=== PATIENT | male | born 1995 | race Caucasian/White ===

== ENCOUNTER 2016-04-22 15:21 | Emergency (ER) | payer SELFPAY ==
[~2016-04-22] VITALS: Ht 172.7 cm; Wt 68.2 kg
[~2016-04-22 15:21] MED LIST: LATU80TA PO; ZYPR5TAB11 OR
[2016-04-22 15:22] VITALS: BP 138/79; PULSE 107; RESP 15; TEMP 97.8; O2SAT 98
--- NOTE | 2016-04-22 15:34 | PD ---
HPI Chief Complaint: Wound/Suture/Staple Re-Check Time Seen by Provider: 15:33 Travel History International Travel<30 days: No Contact w/Intl Traveler<30days: No Traveled to known affect area: No History of Present Illness HPI 20-year-old male presents to the emergency department for evaluation of staple removal. Patient states that about 10 days ago he sustained a laceration to the top of his scalp and had 7 dandy placed [facility]. States he has been keeping the area clean and dry. Denies any swelling, redness, pain, discharge or drainage. No other complaints. PFSH Past Medical History ADHD: Yes Bipolar Disorder: Yes Diminished Hearing: No Headaches: Yes Psychiatric: Yes Immunizations Current: Yes Migraines: Yes (LOUD NOISE) Past Surgical History Other Surgery: Yes (NOSE REPAIR FROM DOG BITE) Social History Alcohol Use: No Tobacco Use: Yes (03/23 PPD) Substance Use: Yes (MARIJUANA USE IN PAST) Allergies-Medications (Allergen,Severity, Reaction): Coded Allergies: No Known Allergies (Verified , 04/29/12) Reported Meds & Prescriptions Reported Meds & Active Scripts Active Reported Latuda (Lurasidone HCl) 80 Mg Tab 80 Mg PO ONE PO AFTER DINNER Zyprexa Zydis (Olanzapine) 5 Mg Tab 5 Mg OR BID 7AM 7PM Review of Systems Except as stated in HPI: all other systems reviewed are Neg Physical Exam Narrative GENERAL: Well-nourished and well-developed pleasant male patient in no acute distress who is nontoxic appearing. SKIN: Warm and dry. 2 cm healed scalp laceration. No erythema, no warmth, no discharge or drainage. [address] HEAD: Normocephalic and atraumatic. No bony point tenderness or crepitus noted throughout the sinuses. EYES: No injection, drainage, or hyphema noted. PERRLA. EOMI. NECK: Supple and the trachea is midline. CARDIOVASCULAR: Regular rate and rhythm. RESPIRATORY: Breath sounds are equal bilaterally with no accessory muscle use, wheezing, rhonchi, or crackles. NEUROLOGICAL: Awake, alert, and oriented. Normal speech and gait. Cranial nerves are grossly intact. Data Data Last Documented VS Vital Signs Date Time Temp Pulse Resp B/P Pulse Ox O2 Delivery O2 Flow Rate FiO2 04/22/16 15:22 97.8 107 15 138/79 98 MDM Medical Decision Making Medical Screen Exam Complete: Yes Emergency Medical Condition: Yes Differential Diagnosis Staple removal versus acute wound care versus recheck Narrative Course 20-year-old male presents to the emergency department for evaluation of staple removal. Patient is afebrile, vital signs are stable. I successfully removed 7 dandy, the patient tolerated well. Discussed proper wound care techniques. Stable for discharge. Diagnosis Primary Impression: Removal of dandy Patient Instructions: Acute Wound Care (ED), General Instructions Additional Instructions: Return to the ED for any acute worsening of symptoms. Med/Other Pt SpecificInfo: No Change to Meds Disposition: 01 DISCHARGE HOME Condition: Stable Raven Barragan Apr 22, 2016 15:34
== END 2016-04-22 15:55 | disposition home or self-care (01) ==
LOC: NEPB 15:21
DX: S01.01XD Laceration without foreign body of scalp, subsequent encounter (principal); X58.XXXD Exposure to other specified factors, subsequent encounter; Z48.02 Encounter for removal of sutures
CPT/HCPCS: 99282

== ENCOUNTER 2016-05-17 14:17 | Emergency (ER) | payer SELFPAY ==
[~2016-05-17] VITALS: Ht 172.7 cm; Wt 75.0 kg
[2016-05-17 14:25] VITALS: BP 143/84; PULSE 97; RESP 20; TEMP 98.9; O2SAT 99
[2016-05-17] MEDS ORDERED: ACETAMINOPHEN/HYDROcodone 325 MG/7.5 MG TAB PO ONE (14:30)
--- NOTE | 2016-05-17 14:32 | PD ---
HPI Chief Complaint: Injury Time Seen by Provider: 14:28 Travel History International Travel<30 days: No Contact w/Intl Traveler<30days: No History of Present Illness HPI 21-year-old right-hand dominant male presents to the ED by EMS for evaluation of left thumb pain. Onset approximately 15 minutes ago after being hit by a skateboard. Patient endorses pain with attempted range of motion. He denies numbness, tingling, nausea. He denies previous injury to the area. He denies chronic health problems , takes no daily medications. NKDA. PFSH Past Medical History ADHD: Yes Bipolar Disorder: Yes Diminished Hearing: No Headaches: Yes Psychiatric: Yes Immunizations Current: Yes Migraines: Yes (LOUD NOISE) Past Surgical History Other Surgery: Yes (NOSE REPAIR FROM DOG BITE) Social History Alcohol Use: No Tobacco Use: Yes (1 /2 PPD) Substance Use: Yes (MARIJUANA USE IN PAST) Allergies-Medications (Allergen,Severity, Reaction): Coded Allergies: No Known Allergies (Verified , 05/17/16) Reported Meds & Prescriptions Reported Meds & Active Scripts Active Ibuprofen 800 Mg Tab 800 Mg PO Q6HR PRN Lortab (Hydrocodone-Acetaminophen) 5-325 Mg Tab 1 Tab PO Q6H PRN Review of Systems Except as stated in HPI: all other systems reviewed are Neg Physical Exam Narrative GENERAL: Well-nourished, well-developed white male in no acute distress. SKIN: Warm and dry. HEAD: Normocephalic. EYES: No scleral icterus. No injection or drainage. NECK: Supple, trachea midline. No JVD or lymphadenopathy. CARDIOVASCULAR: Regular rate and rhythm without murmurs, gallops, or rubs. 2+ DP and radial pulses bilaterally. RESPIRATORY: Breath sounds equal bilaterally. No accessory muscle use. GASTROINTESTINAL: Abdomen soft, non-tender, nondistended. MUSCULOSKELETAL: No cyanosis, or edema. FOCUSED LEFT UPPER EXTREMITY EXAM: There is visible deformity at the MCP joint of the left thumb. No snuffbox tenderness. No laceration of the skin. Patient is able to flex and extend fingers 4 through 5 of the left hand. Cap refill less than 2 seconds. Sensation intact to light touch distally. BACK: Nontender without obvious deformity. No CVA tenderness. Data Data Last Documented VS Vital Signs Date Time Temp Pulse Resp B/P Pulse Ox O2 Delivery O2 Flow Rate FiO2 05/17/16 15:30 93 18 124/67 96 05/17/16 14:25 98.9 Orders Finger ([id number]) (05/17/16 14:27) Acetamin-Hydrocod 325-7.5 Mg ([place] 7.5 (05/17/16 14:30) Lidocaine 1% Inj (50 Ml) (Xylocaine 1% I (05/17/16 15:15) Splint Or Brace Apply/Monitor (05/17/16 15:17) Finger ([id number]) (05/17/16 15:18) Mandatory Outpatient Referral (05/17/16 15:57) MDM Medical Decision Making Medical Screen Exam Complete: Yes Emergency Medical Condition: Yes Differential Diagnosis Dislocation versus fracture versus contusion versus other Narrative Course 21-year-old right-hand dominant male presents to the ED by EMS for evaluation of left thumb pain. Onset approximately 15 minutes ago after being hit by a skateboard. Patient endorses pain with attempted range of motion. He denies numbness, tingling, nausea. He denies previous injury to the area. Vitals reviewed. Physical exam reveals a nontoxic-appearing white male in no acute distress. Focused left upper extremity exam reveals 2+ radial pulse, visible deformity at the MCP joint of the left thumb. No snuffbox tenderness. No laceration of the skin. Patient is able to flex and extend fingers 4 through 5 of the left hand. Cap refill less than 2 seconds. Sensation intact to light touch distally. Patient was administered 7.5 mg Lortab. X-ray of the left thumb: Fracture along the base of the proximal phalanx of the thumb with intra-articular extension and displacement. Minimal subluxation of the joint per radiology read. Closed reduction of the subluxation was performed. Please see my procedure note for details. Post reduction films reveal near anatomic alignment per radiology read. I contacted Dr. Penelope Edward, on-call hand surgeon, who will see the patient in the outpatient setting. Mandatory outpatient referral has been placed. Patient was prescribed 800 mg ibuprofen 3 times a day as needed for pain. He was also prescribed a short course of 5 mg Lortab for pain 6-10 on the pain scale. He is instructed to rest, ice, elevate the hand. He was cautioned not to remove the thumb spica, follow-up with Dr. Edward as discussed. He indicated understanding of the instructions and is amenable to plan of care. Patient is stable and discharged home. Procedures Procedure Narrative Closed reduction procedure: A digital block was performed with 1% lidocaine. Adequate anesthesia was obtained. The thumb was distracted and force was applied in the medial direction at the MCP joint. There was improvement of the visible deformity. Patient was able to flex and extend the thumb immediately following reduction. Patient remains neurovascularly intact. Thumb spica was applied. Postoperative x-rays reveal near anatomical position per radiology read. Diagnosis Primary Impression: Fracture of thumb, left, closed Qualified Code: S62.512A - Closed displaced fracture of proximal phalanx of left thumb, initial encounter Referrals: Penleope Edward MD Patient Instructions: General Instructions, Thumb Fracture (ED) Additional Instructions: DO NOT REMOVE THE SPLINT until cleared by the hand surgeon. Keeping the arm elevated may help to reduce throbbing pain. Ice applied to the area may also help to reduce swelling and pain. Take pain medications every 4-6 hours as prescribed[address] Do not drive while taking narcotic pain medications. A mandatory outpatient consult has been placed with hand surgery on your behalf. You will receive a phone call in the next few days regarding follow-up appointments. Follow-up as instructed by case management. Return to the ED for any urgent or emergent medical condition. Med/Other Pt SpecificInfo: Prescription(s) given Scripts Ibuprofen 800 Mg [id number] Mg PO Q6HR PRN (PAIN) #20 TAB Ref 0 Prov:Michael Martinez MD 05/17/16 Hydrocodone-Acetaminophen (Lortab)5-325 Mg Tab1 Tab PO Q6H PRN (PAIN SCALE 6 TO 10) #7 TAB Ref 0 Prov:Michael Martinez MD 05/17/16 Disposition: 01 DISCHARGE HOME Condition: Stable Linda Pagan May 17, 2016 14:31
--- NOTE | 2016-05-17 15:14 | RADRPT ---
EXAM DATE/TIME: 05/17/2016 14:54 [facility] COMPARISON: No previous studies available for comparison. INDICATIONS : Left first digit pain after being hit with skateboard MEDICAL HISTORY : None. SURGICAL HISTORY : None. ENCOUNTER: Initial ACUITY: 1 day PAIN SCORE: 10/10 LOCATION: Left upper extremity FINDINGS: Examination of the first digit of the left hand demonstrates fracture along the base of proximal phal anx of the thumb. There is slight impaction and minimal comminution. There is intra-articular extensi on and minimal subluxation the joint. CONCLUSION: 1. Displaced fracture along the base of the proximal phalanx of the thumb with intra-articular extens ion and displacement. Minimal subluxation the joint. Willy Salmeron MD on May 17, 2016 at 15:11 Board Certified Radiologist. This report was verified electronically.
[2016-05-17] MEDS ORDERED: LIDOCAINE HCL 1% 50 ML VIAL INFIL ONE (15:15)
[2016-05-17 15:30] VITALS: BP 124/67; PULSE 93; RESP 18; O2SAT 96
--- NOTE | 2016-05-17 15:59 | RADRPT ---
EXAM DATE/TIME: 05/17/2016 15:52 [facility] COMPARISON: FINGER LEFT 1ST DIGIT ([id number]), May 17, 2016, 14:54. INDICATIONS : Post reduction of left first digit dislocation. MEDICAL HISTORY : None. SURGICAL HISTORY : None. ENCOUNTER: Subsequent ACUITY: 1 day PAIN SCORE: 0/10 LOCATION: Left Thumb FINDINGS: Examination of the first digit of the left hand demonstrates splint placement. Fracture on the base o f proximal phalanx is better aligned. CONCLUSION: Fracture base of proximal phalanx of the thumb is near anatomic in alignment. Willy Salmeron MD on May 17, 2016 at 15:57 Board Certified Radiologist. This report was verified electronically.
[2016-05-17] MEDS ORDERED: HYDR-3533 PO (16:01)
[2016-05-17] MEDS ORDERED: IBUP800T23 PO (16:01)
== END 2016-05-17 16:26 | disposition home or self-care (01) ==
LOC: NEPC 14:17
DX: S62.512A Displaced fracture of proximal phalanx of left thumb, initial encounter for closed fracture (principal); W22.8XXA Striking against or struck by other objects, initial encounter
CPT/HCPCS: 26645; 73140; 99284; L3808